=== PATIENT | female | born 1970 | race African-American/Black ===

== ENCOUNTER 2017-12-15 10:01 | Emergency (ER) | payer SELFPAY ==
[2017-12-15 12:16] LABS: #Basophils 0.1 thou/uL (0.0-0.2); #Eosinphils 0.3 thou/uL (0.0-0.7); #Lymphocytes 1.7 thou/uL (1.20-3.40); #Monocytes 0.9 thou/uL (0.11-0.59); #Neutrophils 8.9 thou/uL (1.40-6.50); %Basophils 0.6 % (0.0-1.0); %Eosinophils 2.6 % (0.0-10.0); %Lymphocytes 14.4 % (21.0-51.0); %Monocytes 7.5 % (0.0-10.0); %Neutrophils 74.9 % (42.0-75.0); Hemoglobin 11.6 g/dL (12.0-16.0); Mean Corpuscular HGB CONC 30.5 g/dL (32.0-36.0); Mean Corpuscular Hemoglobin 26.3 pg (27.0-31.0); Mean Corpuscular Volume 86.2 fl (81.0-99.0); Mean Platelet Volume 8.3 fL (7.4-10.4); Platelet Count 193 thou/uL (130-400); RBC Distribution Width 19.6 % (11.5-14.5); Red Blood Cell (RBC) Count 4.39 mill/uL (4.20-5.40); White Blood Cell (WBC) Count 11.8 thou/uL (4.8-10.8)
[2017-12-15 12:38] LABS: ALT (SGPT) 19 U/L (8-55); AST (SGOT) 21 U/L (5-34); Albumin 3.2 g/dL (3.5-5.0); Alkaline Phosphatase 109 U/L (40-150); Anion Gap 10 mmol/L (10-20); BUN (Urea Nitrogen) 9 mg/dL (7.0-18.7); Bilirubin, Total 0.7 mg/dL (0.2-1.2); Calc. Creatinine Clearance 0 mL/min (70-130); Calcium 9.2 mg/dL (7.8-10.44); Carbon Dioxide 28 mmol/L (22-29); Chloride 104 mmol/L (98-107); Estimated GFR-MDRD 65; Globulin 4.3 g/dL (2.4-3.5); Glucose 108 mg/dL (70-105); Potassium 3.5 mmol/L (3.5-5.1); Protein, Total 7.5 g/dL (6.0-8.3); Sodium 138 mmol/L (136-145)
--- NOTE | 2017-12-15 12:46 | RAD ---
NECK SOFT TISSUE RADIOGRAPH SERIES TWO VIEWS: INDICATIONS: Anterior neck swelling. FINDINGS: There is prominence of the submental soft tissues. Reticulated density within this region may relate to edema. Correlate clinically. There is no abnormal thickening of the prevertebral soft tissue st ripe. The epiglottis is partially obscured by the underlying hyoid bone. No significant, abnormal h ypopharyngeal airway distention is present. Interstitial prominence of the upper lung zones is seen. IMPRESSION: 1. Prominent submental soft tissues with increased density that may relate to soft tissue edema. Re commend clinical correlation. 2. There is no abnormal prevertebral soft tissue thickening. POS: [facility]
[2017-12-15] MEDS ORDERED: Dexamethasone 4 mg/ml Vial ONE (13:45)
[2017-12-15] MEDS ORDERED: Ketorolac Tromethamine 60 MG/2 ML VIAL ONE (13:45)
== END 2017-12-15 14:02 | disposition home or self-care (01) ==
LOC: ERS 10:01
DX: J02.9 Acute pharyngitis, unspecified (principal); I11.0 Hypertensive heart disease with heart failure; I50.9 Heart failure, unspecified; D64.9 Anemia, unspecified; E78.5 Hyperlipidemia, unspecified; Z79.82 Long term (current) use of aspirin; Z79.899 Other long term (current) drug therapy
CPT/HCPCS: 36415; 70360; 80053; 84443; 85025; 87081; 87430; 96372; J1100; J1885

== ENCOUNTER 2018-11-09 10:56 | Emergency (ER) | payer SELFPAY | END 2018-11-09 13:00 | disposition home or self-care (01) | LOC: ERS 10:56 | DX: Z76.0 Encounter for issue of repeat prescription (principal); I11.0 Hypertensive heart disease with heart failure; I50.9 Heart failure, unspecified; D50.9 Iron deficiency anemia, unspecified; E78.5 Hyperlipidemia, unspecified; Z79.899 Other long term (current) drug therapy | CPT/HCPCS: 93005 ==